=== PATIENT | male | born 1975 | race African-American/Black ===

== ENCOUNTER 2017-06-03 15:03 | Emergency (ER) | payer OTHER ==
[~2017-06-03] VITALS: Ht 180.3 cm; Wt 113.4 kg
[~2017-06-03 15:03] MED LIST: ADVAIR HFA 45-212 GM INH; ALBUTEROL0.09 MG/A1 INH; DEPAKOTE500 M1 PO; DIVALPROEX SOD500 M2 PO; FLEXERIL 10MG (10 MG PO; FLUOXETINE HCL20 M2 PO; IBU800 MG PO; KEFLEX500 MG PO; MOBIC15 M1 PO; MOTRIN 600 MG600 MG PO; NAPROSYN500 M1 PO; PERCOCET 325 MG1 TA2 PO; PERCOCET 5-3251 EACH PO; PHENOBARBITAL30 MG PO; PHENOBARBITAL32.4 M1 PO; PREDNISONE 20MG20 MG PO; PREDNISONE20 M1 PO; PROAIR HFA8.5 GM INH; QUETIAPINE FUM100 M1 PO; TESSALON PERLE100 MG PO; TRAZODONE HCL50 M1 PO; ZITHROMAX Z-PA250 M1 PO; ZITHROMAX250 M2 PO
[2017-06-03 19:02] LABS: ABSOLUTE BASOPHIL COUNT 0.1 /CUMM (0.0-0.2); ABSOLUTE EOSINOPHIL COUNT 0.1 /CUMM (0.0-0.7); ABSOLUTE LYMPH COUNT 2.3 /CUMM (1.2-3.4); ABSOLUTE MONOCYTE COUNT 0.6 /CUMM (0.10-0.60); BASOPHIL % 0.6 % (0.0-2.0); EOSINOPHIL % 0.8 % (0-5); GRANULOCYTE % 62.8 % (42.2-75.2); HEMATOCRIT 43.8 % (42-52); MEAN CORPUSCULAR HGB 29.2 PG (27.0-31.0); MEAN CORPUSCULAR HGB CONC 32.9 G/DL (33.0-37.0); MEAN CORPUSCULAR VOLUME 88.7 FL (80.0-94.0); MEAN PLATELET VOLUME 7.1 FL (7.4-10.4); PLATELET COUNT 234 /CUMM (130-400); RBC DISTRIBUTION WIDTH 15.3 % (11.5-14.5); RED BLOOD CELL CT 4.93 /CUMM (4.70-6.10)
--- NOTE | 2017-06-03 19:51 | ULTRASOUND REPORT ---
EXAMINATION: RENAL ULTRASOUND CLINICAL INFORMATION: Left flank pain. COMPARISON: None. TECHNIQUE: Real-time imaging of the kidneys and bladder. FINDINGS: RIGHT KIDNEY: There is neither hydronephrosis nor nephrolithiasis. The right kidney measures 10.1 cm. LEFT KIDNEY: There is neither hydronephrosis nor nephrolithiasis. The left kidney measures 10.8 cm. BLADDER: The urinary bladder is partially filled and unremarkable. There is no wall thickening. There is no pelvic free fluid. IMPRESSION: Normal renal and bladder ultrasound.
[2017-06-03] MEDS ORDERED: PERCOCET 5-3251 EACH PO (20:14)
[2017-06-03] MEDS ORDERED: CIPRO500 M1 PO (20:14)
[2017-06-03] MEDS ORDERED: BROMFED DM COU118 M1 PO (20:16)
--- NOTE | 2017-06-03 20:16 | ED GI/GU/ABDOMINAL COMPLAINT ---
History of Present Illness General Chief Complaint: General Adult Stated Complaint: L SIDE PAIN Source: patient Exam Limitations: no limitations Vital Signs & Intake/Output Vital Signs & Intake/Output Vital Signs Date Time Temp Pulse Resp B/P B/P Pulse O2 O2 Flow FiO2 Mean Ox Delivery Rate 06/03 1848 97.4 80 18 122/74 98 Room Air 06/03 1623 96.6 79 18 117/70 96 Room Air Allergies Coded Allergies: No Known Allergies (05/05/17) Reconcile Medications Albuterol Sulfate (Proair Hfa) 8.5 GM HFA.AER.AD 2 PUF INH Q4-6 PRN PRN WHEEZING Brompheniramine/Pseudoephed/Dm (Bromfed Dm Cough Syrup) 2 MG-30 MG-10 MG/5 ML SYRUP 5-10 ML PO Q4-6 PRN PRN cough Ciprofloxacin HCl (Cipro) 500 MG TABLET 1 TAB PO BID pyelonephritis Divalproex Sodium 500 MG TABLET.DR 1,500 MG PO DAILY seizure Divalproex Sodium 500 MG TABLET.DR 1,500 MG PO AT BEDTIME seizure Fluoxetine HCl 20 MG CAPSULE 40 MG PO DAILY depression Fluticasone/Salmeterol (Advair Hfa 45-21 Mcg Inhaler) 45 MCG-21 MCG/ACTUATION HFA.AER.AD 2 PUFF INH BID RESPIRATORY (Reported) Meloxicam (Mobic) 15 MG TABLET 1 TAB PO DAILY PRN PAIN Oxycodone HCl/Acetaminophen (Percocet 5-325 MG Tablet) 5 MG-325 MG TABLET 1 TAB PO BID PRN pain Oxycodone HCl/Acetaminophen (Percocet 5-325 MG Tablet) 5 MG-325 MG TABLET 1 TAB PO BID PRN PAIN Phenobarbital 32.4 MG TABLET 2 TAB PO QAM SEIZURES Phenobarbital 32.4 MG TABLET 1 TAB PO QPM SEIZURE Phenobarbital 32.4 MG TABLET 64.8 MG PO QAM seizure Quetiapine Fumarate 100 MG TABLET 100 MG PO AT BEDTIME sleep Trazodone HCl 50 MG TABLET 50 MG PO AT BEDTIME PRN insomnia Triage Note: RECEIVED 42 YO MALE C/O LEFT FLANK AREA PAIN X ONE HOUR, NO C/O N/V/D. NO C/O HEMATURIA. NO HX OF KIDNEY STONES. PAIN WORSENS WITH MOVEMENT AND COUGHING Triage Nurses Notes Reviewed? yes Onset: Gradual Duration: hour(s): Timing: single episode today Quality/Severity: moderate Location: left flank Radiation: no radiation Prior Abdominal Problems: none HPI: 42-year-old male presents emergency department complaining of left flank pain beginning 1 hour prior to arrival. Patient reports pain is aching, worse with movement or coughing. Patient has no history of a similar pain. Patient had no trauma or inciting event prior to onset of pain. Patient denies fevers, chills, nausea, vomiting, diarrhea, constipation, dysuria, hematuria, testicular pain. The patient is sexually active with one partner for many years, was suspicious for STIs at this time. (Lydia Foster) Past History Travel History Traveled to [place] past 21 day No Medical History Any Pertinent Medical History? 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 . FATHER (FATHER WITH CANCER (PATIENT DOES NOT KNOW WHAT TYPE)). Hx Contributory? No (Lydia Foster) Review of Systems Review of Systems Constitutional: Reports: no symptoms. EENTM: Reports: no symptoms. Respiratory: Reports: no symptoms. Cardiovascular: Reports: no symptoms. GI: Reports: see HPI. Genitourinary: Reports: see HPI. Musculoskeletal: Reports: see HPI. Skin: Reports: no symptoms. Neurological/Psychological: Reports: no symptoms. Hematologic/Endocrine: Reports: no symptoms. Immunologic/Allergic: Reports: no symptoms. All Other Systems: Reviewed and Negative (Lydia Foster) Physical Exam Physical Exam General Appearance: well developed/nourished, no apparent distress, alert, awake Head: atraumatic, normal appearance Eyes: Bilateral: normal appearance. Ears, Nose, Throat, Mouth: hearing grossly normal Neck: normal inspection, supple, full range of motion Respiratory: normal breath sounds, no respiratory distress, lungs clear Cardiovascular: regular rate/rhythm Gastrointestinal: normal bowel sounds, soft, non-tender, no organomegaly Back: normal inspection, normal range of motion, +Left CVA tenderness Extremities: normal range of motion Neurologic/Psych: awake, alert, oriented x 3 Skin: intact, normal color, warm/dry Core Measures ACS in differential dx? No Sepsis Present: No Sepsis Focused Exam Completed? No (Sarah LEGGETT,Lydia Wise) Progress Differential Diagnosis: bowel obstruction, epididymitis, hernia, pyelonephritis, SBO, testicular torsion, ureterolithiasis, urinary retention, urethritis, UTI/ pyelo Plan of Care: Orders Procedure Date/time Status Add-on Test (ER Only) 06/03 1814 Active COMPREHENSIVE METABOLIC PANEL 06/03 181 Complete CBC WITHOUT DIFFERENTIAL 06/03 181 Complete CULTURE,URINE 06/03 165 Active CHLAMYDIA-GC DNA PROBE 06/03 165 Active URINALYSIS 06/03 1625 Complete Laboratory Tests 06/03/17 1821: Anion Gap 7, Estimated GFR > 60, BUN/Creatinine Ratio 16.3, Glucose 100 H, Calcium 9.4, Total Bilirubin 0.2, AST 44, ALT 55, Alkaline Phosphatase 83, Total Protein 7.4, Albumin 3.9, Globulin 3.5, Albumin/Globulin Ratio 1.1, CBC w Diff NO MAN DIFF REQ, RBC 4.93, MCV 88.7, MCH 29.2, MCHC 32.9 L, RDW 15.3 H, MPV 7.1 L, Gran % 62.8, Lymphocytes % 28.4, Monocytes % 7.4, Eosinophils % 0.8, Basophils % 0.6, Absolute Granulocytes 5.0, Absolute Lymphocytes 2.3, Absolute Monocytes 0.6, Absolute Eosinophils 0.1, Absolute Basophils 0.1 06/03/17 1650: Urine Color YEL, Urine Clarity CLDY H, Urine pH 7.5, Ur Specific Zirconia 1.020, Urine Protein NEG, Urine Ketones TRACE H, Urine Nitrite NEG, Urine Bilirubin NEG, Urine Urobilinogen 1.0, Ur Leukocyte Esterase LARGE H, Ur Microscopic SEDIMENT EXAMINED, Urine RBC 5-10 H, Urine WBC > 75 H, Ur Epithelial Cells MANY H, Urine Bacteria FEW H, Urine Hemoglobin SMALL H, Urine Glucose NEG Microbiology 06/03 1649 URINE ROUT: GC DNA Probe - RECD 06/03 1649 URINE ROUT: Chlamydia DNA Probe (ROYCE) - RECD 06/03 1649 URINE ROUT: Urine Culture - RECD Patient's urine shows signs of UTI. Ultrasound without evidence for renal stone or hydronephrosis. Patient's blood work is within normal limits. Given patient 's CVA tenderness there is a suspicion for pyelonephritis. Patient started on antibiotics to treat for pyelonephritis and urine culture sent to lab. Patient has stable vital signs, he is nontoxic appearing. He will follow-up with his primary care doctor this week. Patient will return to emergency Department with any worsening symptoms or concerns. The patient agrees with this plan. Diagnostic Imaging: Viewed by Me: Ultrasound. Discussed w/RAD: Ultrasound. Radiology Impression: PATIENT: RENZO PRICE PRESENT AGE: 42 PATIENT ACCOUNT NO: [id number] : 77 LOCATION: [facility] ORDERING PHYSICIAN: Lydia LEGGETT SERVICE DATE: 06/03/17 EXAM TYPE: US - US-RENAL/KIDNEY EXAMINATION: RENAL ULTRASOUND CLINICAL INFORMATION: Left flank pain. COMPARISON: None. TECHNIQUE: Real-time imaging of the kidneys and bladder. FINDINGS: RIGHT KIDNEY: There is neither hydronephrosis nor nephrolithiasis. The right kidney measures 10.1 cm. LEFT KIDNEY: There is neither hydronephrosis nor nephrolithiasis. The left kidney measures 10.8 cm. BLADDER: The urinary bladder is partially filled and unremarkable. There is no wall thickening. There is no pelvic free fluid. IMPRESSION: Normal renal and bladder ultrasound. DICTATED BY: Jared Heck MD DATE/TIME DICTATED:06/03/171945 MARRIAGE PERFORMER:TANIA DATE/TIME TRANSCRIBED:06/03/171945 CONFIDENTIAL, DO NOT COPY WITHOUT APPROPRIATE AUTHORIZATION. <Electronically signed in Other Vendor System> SIGNED BY: Jared Heck MD 06/03/171950 Initial ED EKG: none (Sarah LEGGETT,Lydia Wise) Departure Departure Disposition: HOME OR SELF CARE Condition: Stable Clinical Impression Primary Impression: Pyelonephritis Secondary Impressions: Cough, Flank pain Referrals: Babita Jc MD (PCP/Family) Additional Instructions: Take full course of antibiotics. Follow-up with your primary care doctor regarding this infection. Increase fluids and rest. Take Percocet as prescribed as needed for pain. If this medication does not manage her pain well enough worsening pain please return to the emergency department for further evaluation. Return with any other concerns. Please note that there might be incidental findings in your evaluation that are unrelated to the current emergency department visit. Please notify your primary care doctor about this emergency department visit in order to obtain and review all of the testing performed so that these incidental findings can be monitored as needed. If you had an x-ray performed, please understand that some fractures may not be seen on the initial set of x-rays. If your symptoms persist you might need a repeat set of x-rays to check for such a fracture. If you had a laceration evaluated, please understand that foreign bodies such as glass or wood may not be visible to the naked eye or on plain x-rays. If the wound becomes red, swollen, increasingly more painful or if there is any drainage from the wound, please have it reevaluated by a physician for the possibility of a retained foreign body. If you're unable to follow up as outlined in the discharge instructions please return to the emergency department. Thank you for choosing the [facility] Emergency Department for your care. It was a pleasure to serve you today. Departure Forms: Customer Survey General Discharge Information Prescriptions: Current Visit Scripts Ciprofloxacin HCl (Cipro) 1 TAB PO BID #20 TAB Oxycodone HCl/Acetaminophen (Percocet 5-325 MG Tablet) 1 TAB PO BID PRN pain #10 TAB Brompheniramine/Pseudoephed/Dm (Bromfed Dm Cough Syrup) 5-10 ML PO Q4-6 PRN PRN cough #120 ML (Sarah LEGGETT,Lydia Wise) PA/WOOL BRUSHER Co-Sign Statement Statement: ED Attending supervision documentation- [] I saw and evaluated the patient. I have also reviewed all the pertinent lab results and diagnostic results. I agree with the findings and the plan of care as documented in the PA's/WOOL BRUSHER's documentation. [X] I have reviewed the ED Record and agree with the PA's/WOOL BRUSHER's documentation. [] Additions or exceptions (if any) to the PAs/WOOL BRUSHER's note and plan are summarized below: [] (Param Jacobo DO
[2017-06-03 20:23] VITALS: BP 129/78
== END 2017-06-03 21:18 ==
LOC: ERH 15:03
PROVIDERS: Physician Assistant
DX: N12 Tubulo-interstitial nephritis, not specified as acute or chronic (principal); R05 Cough; R10.9 Unspecified abdominal pain
CPT/HCPCS: 76775; 81001; 87086; 87491; 87591

== ENCOUNTER 2017-06-17 16:17 | Emergency (ER) | payer OTHER ==
[~2017-06-17] VITALS: Ht 180.3 cm; Wt 113.4 kg
[~2017-06-17 16:17] MED LIST changes: +BROMFED DM COU118 M1 PO; +CIPRO500 M1 PO
--- NOTE | 2017-06-17 18:20 | ED GENERAL ADULT ---
History of Present Illness General Chief Complaint: General Adult Stated Complaint: MED REFILL Source: patient Exam Limitations: no limitations Vital Signs & Intake/Output Vital Signs & Intake/Output Vital Signs Date Time Temp Pulse Resp B/P B/P Pulse O2 O2 Flow FiO2 Mean Ox Delivery Rate 06/17 1831 84 19 121/78 99 Room Air 06/17 1635 97.0 81 123/72 98 Room Air Allergies Coded Allergies: No Known Allergies (05/05/17) Reconcile Medications Albuterol Sulfate (Proair Hfa) 8.5 GM HFA.AER.AD 2 PUF INH Q4-6 PRN PRN WHEEZING Brompheniramine/Pseudoephed/Dm (Bromfed Dm Cough Syrup) 2 MG-30 MG-10 MG/5 ML SYRUP 5-10 ML PO Q4-6 PRN PRN cough Ciprofloxacin HCl (Cipro) 500 MG TABLET 1 TAB PO BID pyelonephritis Divalproex Sodium 500 MG TABLET.DR 1,500 MG PO DAILY seizure Divalproex Sodium 500 MG TABLET.DR 1,500 MG PO AT BEDTIME seizure Fluoxetine HCl 20 MG CAPSULE 40 MG PO DAILY depression Fluticasone/Salmeterol (Advair Hfa 45-21 Mcg Inhaler) 45 MCG-21 MCG/ACTUATION HFA.AER.AD 2 PUFF INH BID RESPIRATORY (Reported) Meloxicam (Mobic) 15 MG TABLET 1 TAB PO DAILY PRN PAIN Oxycodone HCl/Acetaminophen (Percocet 5-325 MG Tablet) 5 MG-325 MG TABLET 1 TAB PO BID PRN pain Oxycodone HCl/Acetaminophen (Percocet 5-325 MG Tablet) 5 MG-325 MG TABLET 1 TAB PO BID PRN PAIN Phenobarbital 32.4 MG TABLET 1 TAB PO AD SEIZURES 2 TABS PO QAM 1 TAB PO QPM Phenobarbital 32.4 MG TABLET 2 TAB PO QAM SEIZURES Phenobarbital 32.4 MG TABLET 1 TAB PO QPM SEIZURE Phenobarbital 32.4 MG TABLET 64.8 MG PO QAM seizure Quetiapine Fumarate 100 MG TABLET 100 MG PO AT BEDTIME sleep Trazodone HCl 50 MG TABLET 50 MG PO AT BEDTIME PRN insomnia Triage Note: 42M HERE FOR MED REFILL ON PHENOBARBITOL FOR SEIZURES. STATES HE HAS ENOUGH OF DEPAKOTE, SEROQUEL AND TRAZADONE. RAPID, PRESSURED, MUMBLING SPEECH DIFFICULT TO DISCERN. STATES HE CALLED HIS DR FOR REFILL BUT WAS TOLD TO COME HERE. DENIES SI/HI AND DENIES AH/VH, DENIES ETOH/DRUG USE. DENIES HAVING A CURRENT NEUROLOGIST. COOPERATIVE, MODERATE EYE CONTACT. Triage Nurses Notes Reviewed? yes Onset: Abrupt Duration: day(s):, constant Timing: recent history Severity: moderate, severe No Modifying Factors: none HPI: 42 year old males comes in for medication refill of phenobarbital. Pt takes medication for seizures. denies any SI/HI. Denies any other asssociated symptoms. no pain. only here for medication refill. (Jae Ross) Past History Travel History Traveled to [place] past 21 day No Medical History Any Pertinent Medical History? 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 . FATHER (FATHER WITH CANCER (PATIENT DOES NOT KNOW WHAT TYPE)). Hx Contributory? No (Jae Ross) Review of Systems Review of Systems Constitutional: Reports: no symptoms. EENTM: Reports: no symptoms. Respiratory: Reports: no symptoms. Cardiovascular: Reports: no symptoms. GI: Reports: no symptoms. Genitourinary: Reports: no symptoms. Musculoskeletal: Reports: no symptoms. Skin: Reports: no symptoms. Neurological/Psychological: Reports: no symptoms. Hematologic/Endocrine: Reports: no symptoms. Immunologic/Allergic: Reports: no symptoms. All Other Systems: Reviewed and Negative (Jae Ross) Physical Exam Physical Exam General Appearance: well developed/nourished, no apparent distress, alert Head: atraumatic, normal appearance Eyes: Bilateral: normal appearance. Ears, Nose, Throat: normal ENT inspection, hearing grossly normal Neck: normal inspection Respiratory: no respiratory distress Cardiovascular: regular rate/rhythm Back: normal inspection Extremities: normal inspection Neurologic/Psych: awake, alert, oriented x 3 Skin: intact, normal color Core Measures ACS in differential dx? No CVA/TIA Diagnosis: No Sepsis Present: No Sepsis Focused Exam Completed? No (Jae Ross) Progress Differential Diagnoses I considered the following diagnoses in my evaluation of the patient: seizures, med refill, drug seeking, Plan of Care: pt told to f/u with pcp. return if any other concerns/worsening of symptoms. Initial ED EKG: none (Jae Ross) Departure Departure Disposition: HOME OR SELF CARE Condition: Stable Clinical Impression Primary Impression: Medication refill Secondary Impressions: Seizures Referrals: Babita Jc MD (PCP/Family) Additional Instructions: take phenobarbital as prescribed. f/u with your pcp/ prescriber. return if any other concerns/worsening of symptoms. Departure Forms: Customer Survey General Discharge Information Prescriptions: Current Visit Scripts Phenobarbital 1 TAB PO AD #30 TAB 2 TABS PO QAM 1 TAB PO QPM (Jae Ross) PA/MANAGER CODE Co-Sign Statement Statement: ED Attending supervision documentation- I saw and evaluated the patient. I have also reviewed all the pertinent lab results and diagnostic results. I agree with the findings and the plan of care as documented in the PA's/MANAGER CODE's documentation. x I have reviewed the ED Record and agree with the PA's/MANAGER CODE's documentation. [] Additions or exceptions (if any) to the PAs/MANAGER CODE's note and plan are summarized below: [] (Neftali RO,Sebastien) Critical Care Note Critical Care Note Critical Care Time: non-applicable (Jae Ross)
[2017-06-17] MEDS ORDERED: PHENOBARBITAL32.4 M1 PO ×2 (18:24→18:26)
[2017-06-17 18:31] VITALS: BP 121/78
== END 2017-06-17 18:35 ==
LOC: ERH 16:17
DX: R56.9 Unspecified convulsions (principal); Z76.0 Encounter for issue of repeat prescription
CPT/HCPCS: 99281